=== PATIENT | male | born 1970 | race Caucasian/White ===

== ENCOUNTER 2019-11-04 22:56 | Emergency (ER) | payer SELFPAY ==
[~2019-11-04] VITALS: Ht 175 cm; Wt 100.0 kg
[~2019-11-04 22:56] MED LIST: PRD20T PO
[2019-11-04 23:23] LABS: BASOPHILS % (AUTO) 0 % (0-10); EOSINOPHILS % (AUTO) 0 % (0-10); HEMATOCRIT 43 % (40-54); HEMOGLOBIN 14.9 G/DL (13.3-17.7); LYMPHOCYTES # (AUTO) 2.6 X 10^3 (1.0-4.0); LYMPHOCYTES % (AUTO) 40 % (12-44); MEAN CORPUSCULAR HEMOGLOBIN 29 PG (25-34); MEAN CORPUSCULAR HGB CONC 35 G/DL (32-36); MEAN CORPUSCULAR VOLUME 83 FL (80-99); MEAN PLATELET VOLUME 9.7 FL (7.4-10.4); MONOCYTES # (AUTO) 0.5 X 10^3 (0.0-1.0); MONOCYTES % (AUTO) 7 % (0-12); NEUTROPHILS # (AUTO) 3.5 X 10^3 (1.8-7.8); NEUTROPHILS % (AUTO) 53 % (42-75); PLATELET COUNT 220 10^3/uL (130-400); RED CELL DISTRIBUTION WIDTH 14.8 % (10.0-14.5); WHITE BLOOD COUNT 6.6 10^3/uL (4.3-11.0)
[2019-11-04 23:38] LABS: INR 0.9 (0.8-1.4); PROTHROMBIN TIME PATIENT 12.4 SEC (12.2-14.7)
[2019-11-04 23:46] LABS: ALANINE AMINOTRANSFERASE 110 U/L (0-55); ALBUMIN 4.7 GM/DL (3.2-4.5); ALKALINE PHOSPHATASE 115 U/L (40-136); BILIRUBIN,TOTAL 1.3 MG/DL (0.1-1.0); BUN/CREATININE RATIO 11; CALCIUM 9.2 MG/DL (8.5-10.1); CARBON DIOXIDE 25 MMOL/L (21-32); CHLORIDE 100 MMOL/L (98-107); CREATININE SERUM 0.83 MG/DL (0.60-1.30); GFR ESTIMATED > 60; GLUCOSE 116 MG/DL (70-105); MAGNESIUM 1.9 MG/DL (1.6-2.4); POTASSIUM 3.2 MMOL/L (3.6-5.0); SODIUM 141 MMOL/L (135-145); TOTAL PROTEIN 8.2 GM/DL (6.4-8.2)
[2019-11-05 00:08] LABS: TSH (THYROID ANALYZER) 1.51 UIU/ML (0.35-4.94)
--- NOTE | 2019-11-05 00:09 | ED Cardiac General ---
History of Present Illness General Chief Complaint: Cardiac/General Problems Stated Complaint: RAPID HEARTBEAT Nursing Triage Note: Pt ambulates to rm 6 with c/o tachycardia x 3-4 days. Pt states he has Hx of HTN but does not take meds or see a PCP for it. 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 Pt denies any chest pain or SOB at this time. PT HR 92 on arrival, in sinus rhythm. Source: patient Exam Limitations: no limitations History of Present Illness Date Seen by Provider: Nov 04, 2019 Time Seen by Provider: 23:11 Initial Comments This 49-year-old man presents to the emergency room with complaints of racing heart. He reports being on a 10 or 11 day alcohol binge and reports heart rate often accelerates during times of heavy drinking. He palpated his pulse and thought his heart rate to be around 160 bpm prior to coming to the emergency room. He no longer has a sensation of tachycardia. He believes his heart rate has been intermittently rather tachycardic for the past 2 or 3 days. He denies any chest pain tonight but states he sometimes has chest discomfort related to his hiatal hernia. He reports drinking 2 or 3 pints of hard alcohol daily. He did drink this same amount tonight. Allergies and Home Medications Allergies Coded Allergies: No Known Drug Allergies (Unverified , 04/06/11) Home Medications No Active Prescriptions or Reported Meds Patient Home Medication List Home Medication List Reviewed: Yes Review of Systems Review of Systems Constitutional: see HPI EENTM: No Symptoms Reported Respiratory: No Symptoms Reported Cardiovascular: See HPI Gastrointestinal: See HPI Genitourinary: No Symptoms Reported Musculoskeletal: no symptoms reported Skin: no symptoms reported Psychiatric/Neurological: See HPI Endocrine: No Symptoms Reported Hematologic/Lymphatic: No Symptoms Reported Past Dswwzbj-Luyffo-Gzktqm Hx Past Med/Social Hx: Reviewed and Corrections made Patient Social History Alcohol Use: Regular Use Number of Drinks Today: 6 Alcohol Beverage of Choice: Whiskey Recreational Drug Use: No Smoking Status: Current Everyday Smoker Type Used: Cigarettes Recent Foreign Travel: No Contact w/Someone Who Travel: No Recent Infectious Disease Expo: No Recent Hopitalizations: No (NO HX) Physical Abuse: No Sexual Abuse: No Mistreated: No Fear: No Immunizations Up To Date Tetanus Booster (TDap): More than 5yrs Past Medical History Surgeries: No Respiratory: No Cardiac: Yes Hypertension Neurological: No Sexually Transmitted Disease: No Genitourinary: No Gastrointestinal: Yes Hiatal Hernia Musculoskeletal: No Endocrine: No Cancer: No Psychosocial: No Integumentary: No Blood Disorders: No Physical Exam Vital Signs Vital Signs - First Documented 11/04/19 23:05 Temp 36.2 Pulse 93 Resp 20 B/P (MAP) 160/98 (118) Pulse Ox 98 O2 Delivery Room Air Capillary Refill : Less Than 3 Seconds Height, Weight, BMI Height: 5'9.00" Weight: 235lbs. oz. 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 Norm as Tested Skin: Normal Color, Warm/Dry Progress/Results/Core Measures Results/Orders Lab Results Laboratory Tests Test 11/04/19 23:13 11/05/19 01:20 Range/Units White Blood Count 6.6 4.3-11.0 10^3/uL Red Blood Count 5.16 4.35-5.85 10^6/uL Hemoglobin 14.9 13.3-17.7 G/DL Hematocrit 43 40-54 % Mean Corpuscular Volume 83 80-99 FL Mean Corpuscular Hemoglobin 29 25-34 PG Mean Corpuscular Hemoglobin Concent 35 32-36 G/DL Red Cell Distribution Width 14.8 H 10.0-14.5 % Platelet Count 220 130-400 10^3/uL Mean Platelet Volume 9.7 7.4-10.4 FL Neutrophils (%) (Auto) 53 42-75 % Lymphocytes (%) (Auto) 40 12-44 % Monocytes (%) (Auto) 7 0-12 % Eosinophils (%) (Auto) 0 0-10 % Basophils (%) (Auto) 0 0-10 % Neutrophils # (Auto) 3.5 1.8-7.8 X 10^3 Lymphocytes # (Auto) 2.6 1.0-4.0 X 10^3 Monocytes # (Auto) 0.5 0.0-1.0 X 10^3 Eosinophils # (Auto) 0.0 0.0-0.3 10^3/uL Basophils # (Auto) 0.0 0.0-0.1 10^3/uL Prothrombin Time 12.4 12.2-14.7 SEC INR Comment 0.9 0.8-1.4 Activated Partial Thromboplast Time 29 24-35 SEC Sodium Level 141 135-145 MMOL/L Potassium Level 3.2 L 3.6-5.0 MMOL/L Chloride Level 100 98-107 MMOL/L Carbon Dioxide Level 25 21-32 MMOL/L Anion Gap 16 H 5-14 MMOL/L Blood Urea Nitrogen 9 7-18 MG/DL Creatinine 0.83 0.60-1.30 MG/DL Estimat Glomerular Filtration Rate > 60 BUN/Creatinine Ratio 11 Glucose Level 116 H 70-105 MG/DL Calcium Level 9.2 8.5-10.1 MG/DL Corrected Calcium 8.5-10.1 MG/DL Magnesium Level 1.9 1.6-2.4 MG/DL Total Bilirubin 1.3 H 0.1-1.0 MG/DL Aspartate Amino Transf (AST/SGOT) 124 H 5-34 U/L Alanine Aminotransferase (ALT/SGPT) 110 H 0-55 U/L Alkaline Phosphatase 115 40-136 U/L Myoglobin 163.6 H 88.3 10.0-92.0 NG/ML Troponin I < 0.028 < 0.028 <0.028 NG/ML Total Protein 8.2 6.4-8.2 GM/DL Albumin 4.7 H 3.2-4.5 GM/DL TSH [place] Testing 1.51 0.35-4.94 UIU/ML Serum Alcohol 208 H <10 MG/DL My Orders Orders - CAROLINA PEDROZA MD Ekg Tracing (11/04/19 23:01) Monitor-Rhythm Ecg Trace Only (11/04/19 23:01) Cbc With Automated Diff (11/04/19 23:17) Magnesium (11/04/19 23:17) Chest 1 View, Ap/Pa Only (11/04/19 23:17) Comprehensive Metabolic Panel (11/04/19 23:17) Myoglobin Serum (11/04/19 23:17) Protime With Inr (11/04/19 23:17) Partial Thromboplastin Time (11/04/19 23:17) O2 (11/04/19 23:17) Lipid Panel (11/05/19 06:00) Ed Iv/Invasive Line Start (11/04/19 23:17) Troponin I (11/04/19 23:17) Thyroid Analyzer (11/04/19 23:17) Alcohol (11/04/19 23:18) Potassium Chloride (Tablet) (Klor Con Ta (11/05/19 00:15) Myoglobin Serum (11/05/19 01:15) Troponin I (11/05/19 01:15) Medications Given in ED Current Medications Medications Dose Ordered Sig/Mirella Route Start Time Stop Time Status Last Admin Dose Admin Potassium Chloride 40 meq ONCE ONCE PO 11/05/19 00:15 11/05/19 00:16 DC 11/05/19 00:20 40 MEQ Vital Signs/I&O 11/04/19 23:05 Temp 36.2 Pulse 93 Resp 20 B/P (MAP) 160/98 (118) Pulse Ox 98 O2 Delivery Room Air Blood Pressure Mean: 118 Initial ECG Impression Date: Nov 04, 2019 Initial ECG Impression Time: 23:03 Initial ECG Rate: 82 Initial ECG Rhythm: Normal Sinus Initial ECG Intervals: Normal Initial ECG Impression: Normal Comment Normal sinus rhythm with no ST elevation or depression. No abnormal intervals or axis deviation. Diagnostic Imaging Diagonstic Imaging: Xray Plain Films/CT/US/NM/MRI: chest Comments Chest x-ray viewed by me. Report not yet available. No acute abnormalities appreciated. Departure Impression Primary Impression: Tachycardia Additional Impressions: Alcohol consumption binge drinking Hypertension Qualified Codes: I10 - Essential (primary) hypertension Disposition: 01 HOME, SELF-CARE Condition: Improved Departure-Patient Inst. Decision time for Depature: 02:15 Referrals: NO,LOCAL PHYSICIAN (PCP/Family) Primary Care Physician Patient Instructions: Alcohol Abuse and Alcoholism (DC), High Blood Pressure (DC) Add. Discharge Instructions: Follow-up with a primary care provider as soon as possible. Start metoprolol as prescribed. Discuss outpatient cardiac monitoring with your doctor. Do not injury drink alcohol. Return to the emergency room if you have worsening symptoms. All discharge instructions reviewed with patient and/or family. Voiced understanding. Scripts Metoprolol Tartrate (Metoprolol Tartrate) 25 Mg Tablet 25 MG PO BID, #60 TAB Prov: CAROLINA PEDROZA MD 11/05/19 CAROLINA PEDROZA MD Nov 05, 2019 00:09
[2019-11-05] MEDS ORDERED: KCL 10 MEQ TAB (MICRO K) PO ONE (00:15)
[2019-11-05] MEDS ORDERED: METO-333 PO (02:39)
[2019-11-05 02:43] VITALS: BP 122/77
--- NOTE | 2019-11-05 07:56 | Diagnostic Imaging Report ---
EXAMINATION: Chest 1 view INDICATION: Tachycardia. COMPARISON: None available. FINDINGS: The lungs are clear without edema or pneumonia. No pleural effusion or pneumothorax. Heart size is normal. IMPRESSION: 1. Clear lungs. Dictated by: Dictated on workstation # [id number]
== END 2019-11-05 02:44 | disposition home or self-care (01) ==
LOC: EDUNIT# 22:56 → ER 22:57
DX: R00.0 Tachycardia, unspecified (principal); I10 Essential (primary) hypertension; F10.20 Alcohol dependence, uncomplicated; F17.210 Nicotine dependence, cigarettes, uncomplicated; Y90.7 Blood alcohol level of 200-239 mg/100 ml
CPT/HCPCS: 36415; 71045; 80053; 80320; 83735; 83874; 84443; 84484; 85025; 85610; 85730; 93005; 93041